=== PATIENT | male | born 1995 | race Caucasian/White ===

== ENCOUNTER 2021-09-18 13:17 | Day surgery (SDC) | payer BC ==
[2021-09-13 13:11] VITALS: BMI 32.5
[~2021-09-18 13:17] MED LIST: LACTATED RINGERS 1,000 ML IV SCH
[2021-09-18 13:44] VITALS: TEMP 97.9
[2021-09-18] MEDS ORDERED: methylPREDNISolone ACETATE 40 MG/ML 1 ML VIAL ONE (14:13)
[2021-09-18] MEDS ORDERED: IOPAMIDOL M200 10 ML VIAL ONE (14:13)
--- NOTE | 2021-09-18 14:26 | P.PCN ---
Date of Procedure: 09/18/21 Procedure(s) Performed: PREOPERATIVE DIAGNOSIS: 1- Lumbar herniated Disc Diseases 2-Lumbar radiculopathy. POSTOPERATIVE DIAGNOSIS: Same as preop diagnosis. PROCEDURE 1. Lumbar epidural steroid injection under fluoroscopic guidance at the L5-S1 level. (Fluoroscopy imaging was available in radiology department) 2. Lumbar epidurogram. ANESTHESIA: Local with 1% lidocaine 3 ml only . EBL: Minimal PROCEDURE INDICATION: The patient with low back pain and radiculitis symptoms unresponsive to conservative treatment. Fluoroscopy was used to optimize visualization of the needle placement and to maximize safety. PROCEDURE DESCRIPTION / TECHNIQUE: The patient was seen and identified in the preoperative area. Risks, benefits, complications including but not limited to infections ,bleeding ,allergic reaction to the medications ,nerve damage and not complete pain releife , and alternatives were discussed with the patient. The patient agreed to proceed with the procedure and signed the consent. IV was started, and vital signs were stable. Patient was taken to the OR and time out was completed. The patient was placed in the prone position on procedure table and a pillow was placed under the abdomen to reduce lumbar lordosis. The lumbosacral area was prepped and draped in the usual sterile fashion.ere closely monitored during the procedure. Vital signs was monitered during the entire procedure. Using anterior-posterior fluoroscopy, the L5-S1 interlaminar space was identified and the skin over this site was marked and then infiltrated with 1% lidocaine subcutaneously. Subsequently, a 20-gauge Tuohy epidural needle was inserted and advanced toward the epidural space using the ``Loss of resistance technique and guided by AP and lateral fluoroscopy. The correct needle position in the epidural space was verified with the injection of 2 mL of the water s oluble contrast dye Isovue 200 contrast and observing an excellent epidurogram with the epidural spread of the dye, after negative aspiration for blood and CSF and in the absence of paresthesias. Again after negative aspiration, a 6 ml mixture containing 80 mg of Depo-medrol , and 2 ml of preservative free Normal Saline, and 2 ml of preservative free lidocaine 1% solution was injected and a washout of epidurogram was seen. Needle was withdrawn intact, skin was cleansed, and bandages were applied. COMPLICATIONS: None DISPOSITION / PLANS: The patient was placed in a supine position and transferred to the recovery area in a stable condition for observation. There was no evidence of lower extremity motor or sensory deficit after the procedure. Patient was discharged from the recovery room after meeting discharge criteria. Home discharge instructions were given to the patient by the staff. The patient was reexamined prior to discharge. The patient will schedule a follow up in the clinic in 2-4 weeks.
--- NOTE | 2021-09-18 14:43 | FL ---
EXAMINATION TYPE: FL guided pain mgmt statistic DATE OF EXAM: 09/18/2021 HISTORY: Pain 1 sec fl time used larissa
[2021-09-18 14:47] VITALS: BP 122/87; PULSE 85; RESP 20
== END 2021-09-18 14:52 | disposition home or self-care (01) ==
LOC: ORPAIN 13:17
PROVIDERS: ATTEND Specialist
DX: M51.26 Other intervertebral disc displacement, lumbar region (principal)
CPT/HCPCS: 62323; J1030; Q9966